=== PATIENT | female | born 1980 | race Caucasian/White ===

== ENCOUNTER 2016-06-17 06:29 | Observation (INO) | payer OTHER ==
[~2016-06-17] VITALS: Ht 167.6 cm; Wt 54.0 kg
[2016-06-17] VITALS (8 sets, daily range): BP systolic 98–140; BP diastolic 61–91; PULSE 83–105; RESP 15–28; TEMP 95–96.7; O2SAT 93–100
[~2016-06-17 06:29] MED LIST: LORA-474 PO; OXYC1SOL5 PO; QUET25 PO
[2016-06-17] MEDS ORDERED: SODIUM CHLOR 0.9% 1000 ML INJ 1,000 ML IV ONE (06:38)
[2016-06-17] MEDS ORDERED: SODIUM CHLORIDE 0.9% FLUSH 5 ML FLUSH IVF PRN (06:45)
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
--- NOTE | 2016-06-17 07:02 | RADRPT ---
EXAM DATE/TIME: 06/17/2016 06:44 [facility] COMPARISON: CT BRAIN W/O CONTRAST, June 11, 2015, 14:31. CT BRAIN W/O CONTRAST, June 21, 2015, 5:04. INDICATIONS : Possible seizure today. RADIATION DOSE: 56.35 CTDIvol (mGy) MEDICAL HISTORY : Intracranial hemorrhage. Subarachnoid hemorrhage. SURGICAL HISTORY : None. ENCOUNTER: Initial ACUITY: 1 day PAIN SCALE: 0/10 LOCATION: cranial TECHNIQUE: Multiple contiguous axial images were obtained of the head. Using automated exposure control and adj ustment of the mA and/or kV according to patient size, radiation dose was kept as low as reasonably a chievable to obtain optimal diagnostic quality images. FINDINGS: There is no evidence for intracranial hemorrhage, mass effect, mass lesions, edema, or extra-axial fl uid collections. The visualized bony structures appear intact. The ventricles are normal size for t he patient's age. There are no signs of acute infarction for technique. There is evidence for anatom y involving the left cerebellum with encephalomalacia at this site. There is opacification of the rig ht sphenoid sinus, however overall degree of sinusitis within the other sinuses has significantly imp roved.There are areas of lucency involving bilateral frontal lobes adjacent to maranda fatou not prese nt previously may be artifactually created. 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 Probable are as of artifactual low attenuation in the frontal lobes bilaterally could be followed. Basim Durant MD on June 17, 2016 at 6:56 Board Certified Radiologist. This report was verified electronically.
[2016-06-17 07:11] LABS: AUTOMATED NEUTROPHIL # 11.9 TH/MM3 (1.8-7.7); BASOPHIL # 0.1 TH/MM3 (0-0.2); BASOPHIL % 0.5 % (0.0-2.0); EOSINOPHIL % 0.2 % (0.0-4.0); HEMATOCRIT 44.4 % (35.0-46.0); HEMO FLAGS DIFF FINAL; LYMPH % 15.6 % (9.0-44.0); LYMPHOCYTE # 2.5 TH/MM3 (1.0-4.8); MEAN CELL VOLUME 101.1 FL (80.0-100.0); MEAN CORPUSCULAR HGB CONC 34.6 % (32.0-36.0); MONO % 9.6 % (0.0-8.0); NEUT % 74.1 % (16.0-70.0); PLATELET COUNT 201 TH/MM3 (150-450); RED BLOOD COUNT 4.39 MIL/MM3 (4.00-5.30); RED CELL DISTRIBUTION WIDTH 14.6 % (11.6-17.2); WHITE BLOOD COUNT 16.1 TH/MM3 (4.0-11.0)
[2016-06-17 07:27] LABS: ANION GAP 14 MEQ/L (5-15)
[2016-06-17 07:37] LABS: ALKALINE PHOSPHATASE 191 U/L (45-117); ALT (GPT) 42 U/L (10-53); AST (GOT) 114 U/L (15-37); BICARBONATE 20.7 MEQ/L (21.0-32.0); BLOOD UREA NITROGEN 4 MG/DL (7-18); CHLORIDE 99 MEQ/L (98-107); GLOMERULAR FILTRATION RATE 71 ML/MIN (>89); POTASSIUM 3.6 MEQ/L (3.5-5.1); SODIUM (NA) 134 MEQ/L (136-145); TOTAL BILIRUBIN ADULT 0.7 MG/DL (0.2-1.0)
[2016-06-17] MEDS ORDERED: SODIUM CHLOR 0.9% 1000 ML INJ 1,000 ML IV SCH (08:33)
[2016-06-17] MEDS ORDERED: BISACODYL 10 MG SUPP PR PRN (08:45)
[2016-06-17] MEDS ORDERED: LORazepam 2 MG TAB PO PRN (08:45)
[2016-06-17] MEDS ORDERED: LORazepam 1 MG TAB PO PRN (08:45)
[2016-06-17] MEDS ORDERED: MAGNESIUM HYDROXIDE SUSP 30 ML CUP PO PRN (08:45)
[2016-06-17] MEDS ORDERED: FLUMAZENIL 0.5 MG/5 ML VIAL IV PUSH PRN (08:45)
[2016-06-17] MEDS ORDERED: NALOXONE HCL 0.4 MG/ML AMP IV PRN (08:45)
[2016-06-17] MEDS ORDERED: ONDANSETRON HCL 4 MG/2 ML VIAL IVP PRN (08:45)
[2016-06-17] MEDS ORDERED: HALOPERIDOL LACTATE 5 MG/ML AMP IM PRN (08:45)
[2016-06-17] MEDS ORDERED: SODIUM CHLORIDE 0.9% FLUSH 5 ML FLUSH FLUSH PRN (08:45)
[2016-06-17] MEDS ORDERED: LORazepam 2 MG/ML VIAL IV PUSH PRN ×5 (08:45)
[2016-06-17] MEDS ORDERED: SENNOSIDES 8.6 MG TAB PO PRN (08:45)
[2016-06-17] MEDS ORDERED: ACETAMINOPHEN 325 MG TAB PO PRN (08:45)
[2016-06-17] MEDS ORDERED: THIAMINE HCL 100 MG TAB PO SCH (09:00)
[2016-06-17] MEDS ORDERED: DOCUSATE SODIUM 100 MG CAP PO SCH (09:00)
[2016-06-17] MEDS ORDERED: MULTIVITAMINS/MINERALS THERAPEUTIC TAB PO SCH (09:00)
[2016-06-17] MEDS ORDERED: FOLIC ACID 1 MG TAB PO SCH (09:00)
[2016-06-17] MEDS ORDERED: SODIUM CHLORIDE 0.9% FLUSH 5 ML FLUSH FLUSH SCH (09:00)
[2016-06-17] MEDS ORDERED: levETIRAcetam 500 MG TAB PO ONE (09:15)
--- NOTE | 2016-06-17 09:20 | PD ---
Physical Exam Date Seen by Provider: Jun 17, 2016 Time Seen by Provider: 07:00 Narrative Patient signed out to me at [address] Brock, please see Dr. Brock's note for further details. She is here because of multiple seizures at home according to family. She came in initially disoriented but is more lucid on my evaluation. Patient does not remember what happened. Laboratory Tests Test 06/17/16 06/17/16 06:35 07:30 White Blood Count 16.1 TH/MM3 (4.0-11.0) Mean Corpuscular Volume 101.1 FL (80.0-100.0) Mean Corpuscular Hemoglobin 35.0 PG (27.0-34.0) Neutrophils (%) (Auto) 74.1 % (16.0-70.0) Monocytes (%) (Auto) 9.6 % (0.0-8.0) Neutrophils # (Auto) 11.9 TH/MM3 (1.8-7.7) Monocytes # (Auto) 1.5 TH/MM3 (0-0.9) Sodium Level 134 MEQ/L (136-145) Carbon Dioxide Level 20.7 MEQ/L (21.0-32.0) Blood Urea Nitrogen 4 MG/DL (7-18) Estimat Glomerular Filtration 71 ML/MIN (>89) Rate Random Glucose 144 MG/DL (74-106) Aspartate Amino Transf 114 U/L (15-37) (AST/SGOT) Alkaline Phosphatase 191 U/L (45-117) Total Protein 8.8 GM/DL (6.4-8.2) Lactic Acid Level 3.1 mmol/L (0.4-2.0) Last [address] 06/17/16 0000 Signed Impressions: Service Date/Time: Friday, June 17, 2016 06:44 - CONCLUSION: 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 Probable areas of artifactual low attenuation in the frontal lobes bilaterally could be followed. Basim Durant MD CT did not show any signs of acute processes. She does have signs of her previous brain injury. She has some elevated white blood cell count secondary to deep margin laceration is suspect. Lactate is also elevated. Considering her multiple seizures and the fact that she is not a seizure medications, has not been able to obtain follow-up as an outpatient according to mom, my plan would be to admit her for further evaluation and treatment of her worsening and seizures. Case is discussed with Dr. Adrian for admission. As per discussion with him Rima Was given to the patient in the ER as well. Data Data Last Documented VS Vital Signs Date Time Temp Pulse Resp B/P Pulse Ox O2 Delivery O2 Flow Rate FiO2 06/17/16 07:25 Room Air 06/17/16 07:22 87 28 138/89 100 06/17/16 06:36 95.0 Orders Complete Blood Count With Diff (06/17/16 06:38) Alcohol (Ethanol) (06/17/16 06:38) Drug Screen, Random Urine (06/17/16 06:38) Ct Brain W/O Iv Contrast(Rout) (06/17/16 ) Blood Glucose (06/17/16 06:38) Ecg Monitoring (06/17/16 06:38) Iv Access Insert/Monitor (06/17/16 06:38) Oximetry (06/17/16 06:38) Comprehensive Metabolic Panel (06/17/16 06:38) Sodium Chlor 0.9% 1000 Ml Inj (Ns 1000 M (06/17/16 06:38) Sodium Chloride 0.9% Flush (Ns Flush) (06/17/16 06:45) Lactic Acid (06/17/16 06:38) ^ Other Nursing Orders (06/17/16 08:28) Creatine Kinase (Cpk) (06/17/16 08:28) Vitamin B12 (06/17/16 08:28) Folate, Serum (06/17/16 08:28) Urinalysis - C+S If Indicated (06/17/16 08:31) Neuro Checks Q4H (06/17/16 08:31) Alcohol Withdrawal Asmt-Ciwa Q4HX18 (06/17/16 08:31) ^ Seizure Precautions (06/17/16 08:31) Passenger Car Cleaning Supervisor / Telemetry EDSON.Q8H (06/17/16 08:31) Folic Acid (Folate) (06/17/16 09:00) Thiamine (Vit B1) (Vitamin B1) (06/17/16 09:00) Multivitamins-Minerals Therap (Theragran (06/17/16 09:00) Flumazenil Inj (Romazicon Inj) (06/17/16 08:45) Lorazepam (Ativan) (06/17/16 08:45) Lorazepam Inj (Ativan Inj) (06/17/16 08:45) Lorazepam (Ativan) (06/17/16 08:45) Lorazepam Inj (Ativan Inj) (06/17/16 08:45) Lorazepam Inj (Ativan Inj) (06/17/16 08:45) Lorazepam Inj (Ativan Inj) (06/17/16 08:45) Haloperidol Inj (Haldol Inj) (06/17/16 08:45) Lorazepam Inj (Ativan Inj) (06/17/16 08:45) Eeg Study (06/17/16 ) Place In Observation (06/17/16 ) Vital Signs (Adult) Q4H (06/17/16 08:33) Activity Oob With Assistance (06/17/16 08:33) Diet Regular Basic (06/17/16 Breakfast) Sodium Chlor 0.9% 1000 Ml Inj (Ns 1000 M (06/17/16 08:33) Sodium Chloride 0.9% Flush (Ns Flush) (06/17/16 08:45) Sodium Chloride 0.9% Flush (Ns Flush) (06/17/16 09:00) Acetaminophen (Tylenol) (06/17/16 08:45) Ondansetron Inj (Zofran Inj) (06/17/16 08:45) Bisacodyl Supp (Dulcolax Supp) (06/17/16 08:45) Docusate Sodium (Colace) (06/17/16 09:00) Magnesium Hydroxide Liq (Milk Of Magnesi (06/17/16 08:45) Sennosides (Senokot) (06/17/16 08:45) Basic Metabolic Panel (Bmp) (06/18/16 06:00) Complete Blood Count With Diff (06/18/16 06:00) Creatine Kinase (Cpk) (06/18/16 06:00) Resp Oxygen Aldo C Titrat 1-4 L (06/17/16 ) Case Management Consult (06/17/16 08:33) Scd Bilateral/Knee High EDSON.BID (06/17/16 08:33) Naloxone Inj (Narcan Inj) (06/17/16 08:45) Levetiracetam (Keppra) (06/17/16 09:15) Admit Order (Ed Use Only) (06/17/16 09:13) Labs Laboratory Tests Test 06/17/16 06/17/16 06:35 07:30 White Blood Count 16.1 TH/MM3 Red Blood Count 4.39 MIL/MM3 Hemoglobin 15.3 GM/DL Hematocrit 44.4 % Mean Corpuscular Volume 101.1 FL Mean Corpuscular Hemoglobin 35.0 PG Mean Corpuscular Hemoglobin 34.6 % Concent Red Cell Distribution Width 14.6 % Platelet Count 201 TH/MM3 Mean Platelet Volume 8.3 FL Neutrophils (%) (Auto) 74.1 % Lymphocytes (%) (Auto) 15.6 % Monocytes (%) (Auto) 9.6 % Eosinophils (%) (Auto) 0.2 % Basophils (%) (Auto) 0.5 % Neutrophils # (Auto) 11.9 TH/MM3 Lymphocytes # (Auto) 2.5 TH/MM3 Monocytes # (Auto) 1.5 TH/MM3 Eosinophils # (Auto) 0.0 TH/MM3 Basophils # (Auto) 0.1 TH/MM3 CBC Comment DIFF FINAL Differential Comment Sodium Level 134 MEQ/L Potassium Level 3.6 MEQ/L Chloride Level 99 MEQ/L Carbon Dioxide Level 20.7 MEQ/L Anion Gap 14 MEQ/L Blood Urea Nitrogen 4 MG/DL Creatinine 0.89 MG/DL Estimat Glomerular Filtration 71 ML/MIN Rate Random Glucose 144 MG/DL Calcium Level 9.3 MG/DL Total Bilirubin 0.7 MG/DL Aspartate Amino Transf 114 U/L (AST/SGOT) Alanine Aminotransferase 42 U/L (ALT/SGPT) Alkaline Phosphatase 191 U/L Total Protein 8.8 GM/DL Albumin 4.0 GM/DL Ethyl Alcohol Level LESS THAN 3 MG/DL Lactic Acid Level 3.1 mmol/L [facility] Medical Record Reviewed: Yes Supervised Visit with JOVANA: No Diagnosis Primary Impression: Seizure Admitting Information Admitting Physician Requests: Admit Scripts No Active Prescriptions or Reported Meds Zeynep Collier MD Jun 17, 2016 09:20
[2016-06-17 09:22] LABS: AMPHETAMINE, URINE NEG (NEG); BARBITURATES, URINE NEG (NEG); COCAINE, URINE POS (NEG)
[2016-06-17] MEDS ORDERED: ALUMINUM/MAGNESIUM/SIMETH 30 ML CUP PO PRN (09:30)
[2016-06-17] MEDS ORDERED: CALCIUM CARBONATE 500 MG CHEWABLE TAB CHEW PRN (09:30)
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
[2016-06-17] MEDS ORDERED: PENICILLIN V POTASSIUM 500 MG TAB PO SCH (10:00)
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
[2016-06-17 13:42] LABS: BACTERIA, URINE MOD /hpf; BLOOD, URINE NEG (NEG); GLUCOSE,URINE NEG (NEG); HYALINE CAST, URINE 3 /lpf (RARE); KETONE, URINE NEG (NEG); MUCUS URINE FEW /lpf (OCC); NITRITE,URINE NEG (NEG); PH, URINE 5.5 (5.0-8.5); SQUAMOUS EPITHELIAL CELL URINE 23 /hpf (0-5); TRANSITIONAL EPI CELLS, URINE <1 /hpf; URINE COLOR YELLOW (YELLW/STRAW)
[2016-06-17 13:44] LABS: COMMENT (UR) CULTURE INDICATED; CULTURE IF INDICATED CULTURE INDICATED
--- NOTE | 2016-06-17 16:10 | MG ---
cc: RIAN DIMAS M.D. Lab No: [id number] Date: Age: 36 Sex: F Race: REFERRING: [place]. ROOM: C30. With photic stimulation. Unfortunately the patient was given some Ativan earlier and is having trouble staying awake. CT shows encephalomalacia in the left cerebellar hemisphere due to craniotomy. Admitted with seizures. The urine drug screen was positive. Currently on Keppra. DESCRIPTION OF RECORD: The patient has some background slowing predominately of theta frequency 5 to 6 Hz artifact from movement but overall symmetrical slowing. EKG is artifactual. Cannot be interpreted by this one lead. No evidence of any epileptiform features. Photic stimulation performed at the end of the study with minimal driving response. A lot of eye flutter artifact. IMPRESSION: Slowing of background moderate without any epileptiform features. Clinical correlation. MD CHICHO Rutherford/RONEN /3:47 PM /3:58 PM
--- NOTE | 2016-06-17 18:18 | HHI.PR ---
Addendum to Inpatient Note Additional Information Patient left Jefferson Romero MD Jun 17, 2016 18:18
[2016-06-17] MEDS ORDERED: FAMOTIDINE 20 MG TAB PO SCH (21:00)
[2016-06-17] MEDS ORDERED: levETIRAcetam 500 MG TAB PO SCH (21:00)
== END 2016-06-17 15:16 | disposition left against medical advice (07) ==
LOC: NEPC 06:29 → NEDA 09:14 → NEPGCP 12:39
PROVIDERS: ADMIT Internal Medicine; ATTEND Internal Medicine
DX: G40.89 Other seizures (principal); G43.909 Migraine, unspecified, not intractable, without status migrainosus; G93.89 Other specified disorders of brain; K21.9 Gastro-esophageal reflux disease without esophagitis; F41.9 Anxiety disorder, unspecified; K08.89 Other specified disorders of teeth and supporting structures; F17.210 Nicotine dependence, cigarettes, uncomplicated; F12.90 Cannabis use, unspecified, uncomplicated; Z87.820 Personal history of traumatic brain injury; Z72.89 Other problems related to lifestyle
CPT/HCPCS: 70450; 80053; 80307; 80320; 81001; 82550; 82607; 82746; 83605; 85025; 87086; 95819; 96361; 96374; 99285; G0378; J2060; J2405; J7030